=== PATIENT | female | born 1965 | race Caucasian/White ===

== ENCOUNTER 2017-07-04 19:06 | Emergency (ER) | payer OTHER, MEDICARE ==
[~2017-07-04] VITALS: Ht 165.1 cm; Wt 61.4 kg
[~2017-07-04 19:06] MED LIST: ADVAIR IH; ADVIL200 MG PO; ALBUTEROL0.09 MG/A1 IH; ATARAX 25MG25 MG/TAB PO; ATIVAN 0.50.5 MG/TAB PO; ATIVAN PO; BACTRIM DS 8001 TAB PO; CEPHALEXIN500 M1 PO; CLEOCIN HC150 MG/CAP PO; CYCLOBENZAPRINE10 MG PO; DESYREL 50MG50 MG PO; DILAUDID 2MG TAB2 MG PO; DILAUDID 4MG TAB4 MG PO; DOXYCYCLINE 10100 MG PO; EFFEXOR; EFFEXOR XR75 MG/CAP PO; EFFEXOR-XR150 MG PO; EXCEDRIN TENSION HA PO; FENTANYL; FENTANYL 100MCG TP; FLEXERIL 1010 MG/TAB PO; GABAPENTIN; HYDROMORPHONE HY8 MG PO; LAMOTRIGINE PO; LORTAB 5/500 501 TAB PO; MORPHINE SULFAT15 M2; MS CONTIN 330 MG/TAB PO; NAPROSYN500 MG PO; NEURONTIN300 MG/CAP PO; NO HOME MEDICATIONS; NORCO 325 MG-51 TAB PO; NORFLEX100 MG PO; OXY IR5 MG PO; OXYCONTIN 20MG20 MG PO; PERCOCET 325 MG1 TA2 PO; PRILOSEC 20MG20 MG PO; PRILOSEC10 MG PO; PRINIVIL10 MG PO; PROAIR HFA0.09 MG/AC IH; PROVENTIL0.09 MG/A1 IH; ROZEREM 8MG TABL8 MG PO; SEPTRA DS 8001 TAB PO; SINGULAIR; SINGULAIR10 MG PO; TIZANIDINE PO; TOPAMAX 25MG25 MG PO; TOPAMAX25 M1 PO; TOPROL XL 25MG25 MG PO; TYLENOL 500MG500 MG PO; ULTRAM 50MG TAB50 MG PO; VALIUM 5MG T5 MG/TAB PO; VENTOLIN H0.09 MG/AC IH; VOLTAREN-XR100 MG PO; ZITHROMAX Z PA250 MG PO; [UNRECOGNIZED DRUG - REMARK]
[2017-07-04 19:11] VITALS: PULSE 75; TEMP 97.6
[2017-07-04] MEDS ORDERED: DOXYCYCLINE 10100 MG PO (19:49)
== END 2017-07-04 20:10 | disposition home or self-care (01) ==
LOC: COL.ER 19:06
DX: L02.413 Cutaneous abscess of right upper limb (principal); Z87.898 Personal history of other specified conditions

== ENCOUNTER 2017-07-14 16:21 | Emergency (ER) | payer MEDICARE, MEDICAID ==
[~2017-07-14] VITALS: Ht 165.1 cm; Wt 61.4 kg
[2017-07-14 16:30] VITALS: TEMP 98.1
[2017-07-14] MEDS ORDERED: DOXYCYCLINE 10100 MG PO (18:06)
[2017-07-14 18:15] VITALS: BP 102/86; PULSE 93
== END 2017-07-14 18:15 | disposition home or self-care (01) ==
LOC: COL.ER 16:21
DX: L02.413 Cutaneous abscess of right upper limb (principal); G43.909 Migraine, unspecified, not intractable, without status migrainosus; F41.9 Anxiety disorder, unspecified; F32.9 Major depressive disorder, single episode, unspecified; F17.210 Nicotine dependence, cigarettes, uncomplicated

== ENCOUNTER 2018-09-29 16:35 | Emergency (ER) | payer MEDICARE ==
[~2018-09-29] VITALS: Ht 170.2 cm; Wt 59.1 kg
[~2018-09-29 16:35] MED LIST changes: +CIPRO 500MG TA500 MG PO; +FLAGYL500 MG PO
[2018-09-29 16:40] VITALS: TEMP 99
[2018-09-29 17:22] LABS: BASO % 0.5 % (0.0-2.0); EOS # 0.1 (0.0-0.7); EOS % 0.6 % (0-4.0); GRAN # 5.4 (1.4-6.5); GRAN % 61.7 % (42.2-75.2); HEMOGLOBIN 13.3 g/dl (12.5-16.0); LYMPH # 2.3 (1.2-3.4); LYMPH % 26.9 % (20.0-51.0); MEAN CELL VOLUME 85 fl (80.0-100.0); MEAN CORPUSCULAR HEMOGLOBIN 28 pg (27.0-31.0); MEAN CORPUSCULAR HGB CONC 33 g/dl (33.0-37.0); MEAN PLATELET VOLUME 9.9 fl (7.4-10.4); MONO # 0.7 (0.1-0.6); MONO % 7.6 % (1.7-9.3); PLATELET COUNT 304 K/mm3 (130-400); RED BLOOD COUNT 4.72 M/mm3 (4.10-5.30); REDCELL DISTRIBUTION WIDTH-CV 14.5 % (11.5-14.5)
[2018-09-29 17:23] LABS: COLLECTION METHOD CLEAN CATCH
[2018-09-29 17:33] LABS: ALBUMIN 4.7 gm/dL (3.5-5.0); BILIRUBIN,TOTAL 0.7 mg/dL (0.0-1.0); CALCIUM 10.1 mg/dL (8.4-10.2); CREATININE, serum 1.37 mg/dL (0.52-1.25); POTASSIUM 4.4 mmol/L (3.4-5.0); TOTAL PROTEIN 9.5 gm/dL (6.4-8.2)
[2018-09-29 17:35] LABS: MUCOUS Present /lpf; PH 5 (5-8); URINE APPEARANCE Hazy; URINE BACTERIA Rare /hpf; URINE BILIRUBIN Negative (NEGATIVE); URINE BLOOD 1+ (NEGATIVE); URINE COLOR Amber; URINE GLUCOSE Negative (NEGATIVE); URINE KETONE Negative (NEGATIVE); URINE LEUKOCYTE ESTERASE Negative (NEGATIVE); URINE NITRATE Positive (NEGATIVE); URINE PROTEIN(semi-quant) 1+ (NEGATIVE); URINE RBC 0-2 /hpf; URINE UROBILINOGEN Negative (NEGATIVE)
[2018-09-29] MEDS ORDERED: NORCO 325 MG-51 TAB PO (18:52)
[2018-09-29] MEDS ORDERED: PHENERGAN25 MG RC (18:52)
[2018-09-29 19:21] VITALS: BP 121/72; PULSE 85
== END 2018-09-29 19:47 | disposition home or self-care (01) ==
LOC: COL.ER 16:35
PROVIDERS: Emergency Medicine
DX: G89.29 Other chronic pain (principal); R10.9 Unspecified abdominal pain; R11.10 Vomiting, unspecified; I10 Essential (primary) hypertension; G43.909 Migraine, unspecified, not intractable, without status migrainosus; F17.210 Nicotine dependence, cigarettes, uncomplicated
CPT/HCPCS: J1170; J2405; J2550; J3010; J7030